=== PATIENT | female | born 1975 | race Caucasian/White ===

== ENCOUNTER 2020-06-07 11:37 | Emergency (ER) | payer OTHER ==
[~2020-06-07] VITALS: Ht 160 cm; Wt 77.0 kg
[2020-06-07 12:26] LABS: BILIRUBIN,URINE NEGATIVE (NEG); CLARITY,URINE CLEAR; COLOR,URINE YELLOW; NITRITE,URINE NEGATIVE (NEG); PROTEIN,URINE NEGATIVE (NEG-TRACE); UROBILINOGEN,URINE 0.2 mg/dL (0.2 mg/dL)
[2020-06-07 12:27] LABS: BASO # 0.1 x10^3/uL (0.0-0.2); BASO % 1 % (0-3); EOS # 0.1 x10^3/uL (0.0-0.7); EOS % 2 % (0-3); HEMATOCRIT 38.5 % (36.0-47.0); HEMOGLOBIN 13.1 g/dL (12.0-15.5); LYMPH # 2.1 x10^3/uL (1.0-4.8); LYMPH % 34 % (24-48); MEAN CORPUSCULAR HEMOGLOBIN 30 pg (25-35); MEAN CORPUSCULAR HGB CONC 34 g/dL (31-37); MEAN CORPUSCULAR VOLUME 89 fL (79-100); MONO # 0.4 x10^3/uL (0.0-1.1); MONO % 7 % (0-9); NEUT # 3.5 x10^3/uL (1.8-7.7); NEUT % 56 % (31-73); PLATELET COUNT 316 x10^3/uL (140-400); RED BLOOD COUNT 4.33 x10^6/uL (3.50-5.40); RED CELL DISTRIBUTION WIDTH 13.5 % (11.5-14.5); WHITE BLOOD COUNT 6.2 x10^3/uL (4.0-11.0)
[2020-06-07] MEDS ORDERED: IV NORMAL SALINE 1000ML BAG 1,000 ML IV SCH (12:30)
--- NOTE | 2020-06-07 12:30 | PHYS DOC ---
General Adult EDM: Chief Complaint: ABDOMINAL PAIN HPI: HPI: Patient is a 45 year old female who presents with lower left-sided abdominal pain and bloating is a cramping type feeling for the last week. She states she always has a little bit of bloating but not usually this bad. She states that she has waves of nausea that come and go. States 3 weeks ago she had some diarrhea but since then she has been regular and has not had diarrhea. She states she took Tylenol for pain yesterday. She states that her pain is a 6 out of 10 but is refusing any pain medications at this time. She is a history of colitis. She has never seen a GI doctor and states that she does not necessarily have a primary care doctor. She states she goes to the clinic at [place]. She denies fever, vomiting, chest pain, shortness of air, cough, headache, dizziness, back pain, urinary symptoms, vaginal discharge, irregular periods, constipation, diarrhea. Review of Systems: Review of Systems: Constitutional: Denies fever or chills. [] Eyes: Denies change in visual acuity. [] HENT: Denies nasal congestion or sore throat. [] Respiratory: Denies cough or shortness of breath. [] Cardiovascular: Denies chest pain or edema. [] GI: + abdominal pain, + intermittent nausea, + bloating, denies vomiting, blo daniel stools or diarrhea. [] : Denies dysuria. [] Musculoskeletal: Denies back pain or joint pain. [] Integument: Denies rash. [] Neurologic: Denies headache, focal weakness or sensory changes. [] Endocrine: Denies polyuria or polydipsia. [] Lymphatic: Denies swollen glands. [] Psychiatric: Denies depression or anxiety. [] Heart Score: Risk Factors: Risk Factors: DM, Current or recent (<one month) smoker, HTN, HLP, family history of CAD, obesity. Risk Scores: Score 0 - 3: 2.5% MACE over next 6 weeks - Discharge Home Score 4 - 6: 20.3% MACE over next 6 weeks - Admit for Clinical Observation Score 7 - 10: 72.7% MACE over next 6 weeks - Early Invasive Strategies Current Medications: Current Medications Medications (Trade) Dose Ordered Sig/Reza Start Time Stop Time Status Last Admin Dose Admin Sodium Chloride 1,000 ml @ 1,000 mls/hr Q1H 06/07/20 12:30 06/07/20 13:29 Allergies: Allergies: Allergies Coded Allergies Type Severity Reaction Last Updated Verified No Known Drug Allergies 06/07/20 No Physical Exam: PE: Constitutional: Well developed, well nourished, no acute distress, non-toxic appearance. [] HENT: Normocephalic, atraumatic, bilateral external ears normal, oropharynx moist, no oral exudates, nose normal. [] Eyes: PERRLA, EOMI, conjunctiva normal, no discharge. [] Neck: Normal range of motion, no tenderness, supple, no stridor. [] Cardiovascular:Heart rate regular rhythm, no murmur [] Lungs & Thorax: Bilateral breath sounds clear to auscultation [] Abdomen: Bowel sounds normal, soft, no tenderness, no masses, no pulsatile masses. [] Skin: Warm, dry, no erythema, no rash. [] Back: No tenderness, no CVA tenderness. [] Extremities: No tenderness, no cyanosis, no clubbing, ROM intact, no edema. [] Neurologic: Alert and oriented X 3, normal motor function, normal sensory function, no focal deficits noted. [] Psychologic: Affect normal, judgement normal, mood normal. Normal physical exam [] Current Patient Data: Labs: Laboratory Tests Test 06/07/20 12:17 POC Urine HCG, Qualitative Hcg negative (Negative) EKG: EKG: [] Radiology/Procedures: Radiology/Procedures: [] Impression: [facility] [address] [place], [place] [id number] IMAGING REPORT Signed PATIENT: BRONWYN HARDIN ACCOUNT: [id number] : 1975 LOCATION: ER AGE: 45 SEX: F EXAM STATUS: REG ER ORD. PHYSICIAN: KENTRELL MARTÍNEZ APRN REASON: left mid to lower abd pain, nausea, hx colitis PROCEDURE: CT ABD PELV W/ IV CONTRST ONLY EXAM: CT Abdomen and Pelvis with IV contrast CLINICAL HISTORY: Reason: left mid to lower abd pain, nausea, hx colitis / Spl. Instructions: [id number] 75ML / History: . COMPARISON: none TECHNIQUE: Helical CT of the abdomen and pelvis was performed following the administration of IV contrast. Axial, coronal and sagittal reformatted images were generated. ---PQRS compliance statement - One or more of the following individualized dose reduction techniques were utilized for this study: 1. Automated exposure control 2. Adjustment of the mA and/or kV according to patient size 3. Use of iterative reconstruction technique--- FINDINGS: Lower chest: Lung bases are clear. Abdomen and pelvis: Liver and biliary system: No focal liver lesion. High density material dependently within the gallbladder likely sludge. No biliary ductal dilatation. Spleen: Unremarkable Pancreas: Unremarkable Adrenal glands: Unremarkable Kidneys: Symmetric nephrograms. Symmetric nephrograms. No focal renal lesion. No hydronephrosis. No hydroureter. Lymph nodes/retroperitoneum: No abdominal or pelvic lymphadenopathy. Vessels: Aorta is normal in caliber. Bowel/Peritoneal cavity: Moderate colonic stool content. No small or large bowel dilatation. No bowel obstruction. Trace free pelvic fluid. Infiltration is seen about the sigmoid colon. Abdominal wall: Unremarkable Bladder: Unremarkable gallbladder wall thickening likely decompressed Bones: No aggressive osseous lesion is seen. Degenerative changes of the spine are seen. IMPRESSION: 1. Infiltration about the sigmoid colon may represent changes of sigmoid colitis. No definite associated diverticulitis suggest acute diverticulitis. Therefore infectious/inflammatory colitis are primary considerations. However following resolution of the acute process, recommend further evaluation with colonoscopy to exclude underlying mass. 2. Gallbladder sludge without CT evidence for acute cholecystitis. Electronically signed by: Weston Moulton MD (06/07/2020 2:37 PM) [facility] DICTATED and SIGNED BY: WESTON MOULTON MD DATE: 06/07/20 [id number] 0 Course & Med Decision Making: Course & Med Decision Making Pertinent Labs and Imaging studies reviewed. (See chart for details) See HPI. Alert and oriented x4. Ambulatory with steady gait. Speaks in full complete sentences. Abdomen is soft and nontender. Vital signs within normal limits. IMPRESSION: 1. Infiltration about the sigmoid colon may represent changes of sigmoid colitis. No definite associated diverticulitis suggest acute diverticulitis. Therefore infectious/inflammatory colitis are primary considerations. However following resolution of the acute process, recommend further evaluation with colonoscopy to exclude underlying mass. 2. Gallbladder sludge without CT evidence for acute cholecystitis. Blood work unremarkable. Patient is tolerating p.o. She is stable enough to be sent home and follow-up with a GI doctor. She will be sent home on oral antibiotics for colitis. [] Kenneth Disclaimer: Kenneth Disclaimer: This electronic medical record was generated, in whole or in part, using a voice recognition dictation system. Departure Departure Impression: Primary Impression: Colitis Disposition: DC HOME SELF CARE/HOMELESS Condition: STABLE Referrals: KHADAR NAVARRO MD Patient Instructions: Colitis Additional Instructions: Stay on a clear liquid diet for the next 48 hours to bowel rest. Take medication as prescribed. Follow-up with the GI doctor as soon as possible. Scripts Hydrocodone/Apap 5-325 (NORCO 5-325 TABLET) 1 Each Tablet 1 TAB PO PRN Q6HRS PRN for PAIN, #10 TAB 0 Refills Prov: KENTRELL MARTÍNEZ APRN 06/07/20 Metronidazole (FLAGYL) 500 Mg Tablet 1 TAB PO BID, #14 TAB Prov: KENTRELL MARTÍNEZ APRN 06/07/20 Ciprofloxacin Hcl (CIPRO) 500 Mg Tablet 1 TAB PO BID for 10 Days, #20 TAB 0 Refills Prov: KENTRELL MARTÍNEZ APRN 06/07/20 Methylprednisolone (MEDROL) 4 Mg Tab.ds.pk 1 PKG PO UD, #1 PKG Prov: KENTRELL MARTÍNEZ ASSEMBLER TYPE BAR AND SEGMENT 06/07/20 KENTRELL MARTÍNEZ APRN Jun 07, 2020 12:30
[2020-06-07 12:39] LABS: BACTERIA,URINE FEW /HPF (0-FEW); RBC,URINE 0 /HPF (0-2); WBC,URINE 0 /HPF (0-4)
[2020-06-07 13:48] LABS: CALCIUM 8.1 mg/dL (8.5-10.1); CREATININE 0.7 mg/dL (0.6-1.0); GFR 89.7; POTASSIUM 3.7 mmol/L (3.5-5.1)
[2020-06-07 13:58] LABS: ALBUMIN 3.4 g/dL (3.4-5.0); ALBUMIN/GLOBULIN RATIO 0.9 (1.0-1.7); TOTAL BILIRUBIN 0.4 mg/dL (0.2-1.0); TOTAL PROTEIN 7.1 g/dL (6.4-8.2)
[2020-06-07] MEDS ORDERED: CONTRAST GIVEN. MC PRN (14:15)
[2020-06-07] MEDS ORDERED: IOHEXOL 300 MG/ML 100ML VIAL. IV ONE (14:15)
[2020-06-07 14:20] VITALS: BP 138/65
--- NOTE | 2020-06-07 14:40 | RAD ---
EXAM: CT Abdomen and Pelvis with IV contrast CLINICAL HISTORY: Reason: left mid to lower abd pain, nausea, hx colitis / Spl. Instructions: [id number] 75ML / History: . COMPARISON: none TECHNIQUE: Helical CT of the abdomen and pelvis was performed following the administration of IV contrast. Axial, coronal and sagittal reformatted images were generated. ---PQRS compliance statement - One or more of the following individualized dose reduction techniques were utilized for this study: 1. Automated exposure control 2. Adjustment of the mA and/or kV according to patient size 3. Use of iterative reconstruction technique--- FINDINGS: Lower chest: Lung bases are clear. Abdomen and pelvis: Liver and biliary system: No focal liver lesion. High density material dependently within the gallbladder likely sludge. No biliary ductal dilatation. Spleen: Unremarkable Pancreas: Unremarkable Adrenal glands: Unremarkable Kidneys: Symmetric nephrograms. Symmetric nephrograms. No focal renal lesion. No hydronephrosis. No hydroureter. Lymph nodes/retroperitoneum: No abdominal or pelvic lymphadenopathy. Vessels: Aorta is normal in caliber. Bowel/Peritoneal cavity: Moderate colonic stool content. No small or large bowel dilatation. No bowel obstruction. Trace free pelvic fluid. Infiltration is seen about the sigmoid colon. Abdominal wall: Unremarkable Bladder: Unremarkable gallbladder wall thickening likely decompressed Bones: No aggressive osseous lesion is seen. Degenerative changes of the spine are seen. IMPRESSION: 1. Infiltration about the sigmoid colon may represent changes of sigmoid colitis. No definite associated diverticulitis suggest acute diverticulitis. Therefore infectious/inflammatory colitis are primary considerations. However following resolution of the acute process, recommend further evaluation with colonoscopy to exclude underlying mass. 2. Gallbladder sludge without CT evidence for acute cholecystitis. Electronically signed by: Weston Victor MD (06/07/2020 2:37 PM) [facility]
[2020-06-07] MEDS ORDERED: CIPR500T94 PO (15:19)
[2020-06-07] MEDS ORDERED: METH4TAB2 PO (15:19)
[2020-06-07] MEDS ORDERED: METR500T PO (15:19)
[2020-06-07] MEDS ORDERED: HYDR-3164 PO (15:19)
== END 2020-06-07 15:33 | disposition home or self-care (01) ==
LOC: ER 11:37
DX: K52.9 Noninfective gastroenteritis and colitis, unspecified (principal)
CPT/HCPCS: 36415; 74177; 80053; 81001; 81025; 83690; 85025; 96360; 99285; J7030; Q9967